=== PATIENT | male | born 1965 | race Caucasian/White ===

== ENCOUNTER 2016-06-24 09:33 | Emergency (ER) | payer OTHER ==
--- NOTE | 2016-06-24 09:53 | EDPHY ---
H & P Stated Complaint: RIGHT LEG PAIN WITH PAINFUL AREA. RECENT TRAVEL. Time Seen by Provider: 06/24/16 09:46 HPI/ROS: CHIEF COMPLAINT: Right leg pain HISTORY OF PRESENT ILLNESS: The patient is a 50-year-old healthy man who comes to the emergency department complaining of pain and tenderness to his right calf. He had the flu 2 weeks ago and states that his symptoms have been gradually improving over the last week. He flew here from [place] on Tuesday. Crane a little lightheaded yesterday he thinks from the altitude but that resolved. He also developed some swelling in his right calf and tenderness. No discoloration. No trauma. Today the swelling is decreased compared to yesterday but the tenderness remains. He has not had a fever. He has not had any chest pain or shortness of breath. No history of clotting disorder. Nonsmoker. No recent procedures. REVIEW OF SYSTEMS: Constitutional: denies: chills, fever, recent illness, recent injury EENTM: denies: blurred vision, double vision, nose congestion Respiratory: denies: cough, shortness of breath Cardiac: denies: chest pain, irregular heart rate, lightheadedness, palpitations Gastrointestinal/Abdominal: denies: abdominal pain, diarrhea, nausea, vomiting, blood streaked stools Genitourinary: denies: dysuria, frequency, hematuria, pain Musculoskeletal: See HPI Skin: denies: lesions, rash, jaundice, bruising Neurological: denies: headache, numbness, paresthesia, tingling, dizziness, weakness Hematologic/Lymphatic: denies: blood clots, easy bleeding, easy bruising Immunologic/allergic: denies: HIV/AIDS, transplant EXAM: GENERAL: Well-appearing, well-nourished and in no acute distress. HEAD: Atraumatic, normocephalic. EYES: Pupils equal round and reactive to light, extraocular movements intact, sclera anicteric, conjunctiva are normal. ENT: TMs normal, nares patent, oropharynx clear without exudates. Moist mucous membranes. NECK: Normal range of motion, supple without lymphadenopathy or JVD. LUNGS: Breath sounds clear to auscultation bilaterally and equal. No wheezes rales or rhonchi. HEART: Regular rate and rhythm without murmurs, rubs or gallops. ABDOMEN: Soft, nontender, normoactive bowel sounds. No guarding, no rebound. No masses appreciated. BACK: No CVA tenderness, no spinal tenderness, step-offs or deformities EXTREMITIES: mild right calf tenderness medially. No swelling. Normal range of motion, no pitting or edema. No clubbing or cyanosis. NEUROLOGICAL: Cranial nerves II through XII grossly intact. Normal speech, normal gait. 5/5 strength, normal movement in all extremities, normal sensation PSYCH: Normal mood, normal affect. SKIN: Warm, dry, normal turgor, no visible rashes or lesions. Source: Patient Exam Limitations: No limitations - Personal History Current Tetanus/Diphtheria Vaccine: Yes Current Tetanus Diphtheria and Acellular Pertussis (TDAP): Yes - Medical/Surgical History Hx Asthma: No Hx Chronic Respiratory Disease: No Hx Diabetes: No Hx Cardiac Disease: No Hx Renal Disease: No Hx Cirrhosis: No Hx Alcoholism: No Hx HIV/AIDS: No Hx Splenectomy or Spleen Trauma: No Other PMH: DENIES - Family History Significant Family History: Hypertension - Social History Smoking Status: Never smoked Alcohol Use: Sober Drug Use: None Constitutional: Initial Vital Signs Temperature (C) 36.8 C 06/24/16 09:36 Heart Rate 85 06/24/16 09:36 Respiratory Rate 17 06/24/16 09:36 Blood Pressure 167/99 H 06/24/16 09:36 O2 Sat (%) 97 06/24/16 09:36 O2 Delivery Mode Room Air Allergies/Adverse Reactions: No Known Allergies Allergy (Unverified 06/24/16 09:34) Home Medications: Medication Instructions Recorded NK [No Known Home Meds] 06/24/16 Medical Decision Making - Diagnostics Imaging: Study: Ultrasound of the: Lower extremity Indication: The calf pain Results: US scan of the right leg was obtained. The results of the study are negative for DVT. The study was read by the radiologist, Dr. Ranjith Callejas. I viewed the images myself on the PACS system. ED Course/Re-evaluation: 11:10 a.m. we discussed the patient's ultrasound results. He is reassured. He declines further workup or testing at this time. He is eager to go home. We discussed indications for returning. He is currently asymptomatic. He is ambulating without difficulty. Differential Diagnosis: Partial list of the Differential diagnosis considered include but were not limited to; DVT, phlebitis, trauma and although unlikely based on the history and physical exam, I also considered knee injury, infection, hip injury. I discussed these differential diagnoses and the plan with the patient as well as the usual and expected course. The patient understands that the diagnosis is provisional and that in medicine we are not always correct and that further workup is often warranted. Usual and customary warnings were given. All of the patient's questions were answered. The patient was instructed to return to the emergency department should the symptoms at all worsen or return, otherwise to followup with the physician as we discussed. Departure - Departure Disposition: Home, Routine, Self-Care Clinical Impression: Right calf pain Condition: Fair Instructions: Leg Pain (ED) Referrals: DEVIN CABA [Other] - As per Instructions
[2016-06-24 11:28] VITALS: BP 130/78; PULSE 76; RESP 16; TEMP 97.5; O2SAT 98
== END 2016-06-24 11:28 | disposition home or self-care (01) ==
DX: M79.661 Pain in right lower leg (principal)